=== PATIENT | female | born 2000 | race Hispanic/Latino ===

== ENCOUNTER → 2018-02-01 | Outpatient (CLI) | payer OTHER ==
--- NOTE | 2018-02-06 08:53 | Diagnostic Imaging Report ---
#[id number] - USBRECOMRT ULTRASOUND OF THE RIGHT BREAST : 02/01/2018 No prior exams were available for comparison. Color flow and real-time ultrasound were performed on the entire right breast with scanning in all four quadrants, retroareolar region and the right axilla. -No cystic or solid mass is identified. IMPRESSION: NEGATIVE There is no sonographic evidence of malignancy. Follow-up with ACR/ACS guidelines. Joe German Jr., D.O. cw/:02/05/2018 11:25:19 Lay Ups Assembler: CHUCK DELGADO, [facility] letter sent: Normal Exam Ultrasound BI-RADS: 1 Negative
--- NOTE | 2018-02-06 08:53 | Diagnostic Imaging Report ---
#[id number] - USBRECOMLT ULTRASOUND OF THE LEFT BREAST : 02/01/2018 No prior exams were available for comparison. Color flow and real-time ultrasound were performed on the entire left breast with scanning in all four quadrants, retroareolar region and the left axilla. -There is no cystic or solid mass seen. IMPRESSION: NEGATIVE There is no sonographic evidence of malignancy. Follow-up with ACR/ACS guidelines. Joe German Jr., D.O. cw/:02/05/2018 11:26:44 Meatcutter: CHUCK DELGADO, [facility] letter sent: Normal Exam Ultrasound BI-RADS: 1 Negative
== END ==
LOC: US 13:35
PROVIDERS: ATTEND Internal Medicine
DX: N64.59 Other signs and symptoms in breast (principal)